=== PATIENT | male | born 1990 | race Caucasian/White ===

== ENCOUNTER 2017-09-29 21:32 | Emergency (ER) | payer OTHER, SELFPAY ==
--- NOTE | 2017-09-29 21:00 | CT_ITS ---
STUDY: CT ABDOMEN AND PELVIS WITHOUT CONTRAST REASON FOR EXAM: Male, 26 years old. Left flank pain RADIATION DOSAGE (If Supplied By Facility): CTDIvol = ( 24.18 ) mGy, DLP = ( 1341.05 ) mGycm TECHNIQUE: Transaxial images were obtained from the dome of the diaphragm to the symphysis pubis without oral contrast, and without intravenous contrast. Sagittal and coronal images were reconstructed. Individualized dose optimization techniques were used for this CT. COMPARISON: None. FINDINGS: Evaluation of the abdominal viscera is limited in the absence of intravenous contrast. There are minimal tree-in-bud opacities in the right middle lobe which are consistent with a very mild infectious etiology. The visualized portions of the heart and pericardium are within normal limits. There are no calcified gallstones present. The liver is low in density, consistent with fatty infiltration. The spleen is enlarged, measuring 15 cm in anterior posterior dimension. The pancreas demonstrates an unremarkable unenhanced appearance. The adrenal glands are within normal limits. There are no obstructing renal stones. There is no hydronephrosis. Normal visualized stomach. There is no bowel obstruction or inflammation. The appendix is not visualized, but there are no findings to suggest acute appendicitis. The aorta is normal in caliber. There is no abdominal or pelvic free air, free fluid, fluid collection or lymphadenopathy. There are no destructive osseous lesions. CT/Abdomen/Pelvis without Cont IMPRESSION: Minimal tree-in-bud opacities in the right middle lobe which are consistent with a very mild infectious or inflammatory etiology. No urinary calculi. No hydronephrosis. No bowel obstruction or inflammation. Normal appendix. Splenomegaly. Fatty liver. Electronically Signed: Kali Perez, at 21:45 EDT Tel , Service support ,
[2017-09-29 23:28] LABS: Bacteria 0 SEEN /hpf (None Seen); Mucous, Urine 0 SEEN /hpf (<or=2+); Red Blood Cells-Urine 0 SEEN /hpf (0-5); Squamous Epithelial Cells - UA 0 SEEN /hpf (0-5); White Blood Cells 0 SEEN /hpf (0-5)
[2017-09-30 00:03] LABS: Color, Urine Yellow (Yellow); Glucose, Dipstick Normal (Normal); Ketone-Dipstick Negative (Negative); Leukocyte Esterase-Dipstick Negative /ul (Negative); Nitrite-Dipstick Negative (Negative); Occult Blood-Urine Negative /ul (Negative); Protein-Dipstick Negative (Negative); Urine Bilirubin Dipstick Negative (Negative); Urine Clarity Clear (Clear); Urine Urobilinogen Normal (Normal)
--- NOTE | 2017-09-30 01:34 | ED.VISSUMM ---
- ER Visit Summary Date of Service: 09/30/17 Chief Complaint: Left flank pain History of Present Illness: The patient is a 26 M presents with waxing waning sharp left upper abdominal pain. States symptoms worse with movement. Denies any trauma. Pain currently 2. Denies any urinary symptoms. No history of kidney stones. States grandfather history of renal cancer. No medicines taken. Denies history of gastric ulcers or kidney injury. No past med history. Physical Examination: General: Alert and oriented ?3, no acute distress HEENT: Normocephalic, atraumatic. Moist mucosa membranes Neck: supple, nontender. Cardiovascular: Regular rate and rhythm, no murmurs Respiratory: Normal breath sounds, symmetric, no distress Abdomen: Soft, nontender, nondistended Back: No CVA tenderness, no rash Extremities: Nontender, no edema, pulses intact ?4 Neuro: no focal neurological deficits. Test Results: UA normal. Flank CT no intra-abdominal process. There is reported right middle tree but he concerns for infection versus inflammatory per radiology. Emergency Department Course and Treatment: Patient UA negative. Flank CT with no stones or intra-abdominal process. Given Motrin with improvement of symptoms. Also reported right middle lobe abutting per radiology with infection versus inflammation. Denies any cough symptoms. He does have tobacco history. He will continue Motrin as needed. He will follow-up as an outpatient. He will return if any worsening symptoms. Treatment Plan: [] Disposition: Discharge Impression: Nonspecific abdominal pain This note was generated with simplifyMD dictation software. It may contain incorrect words, spelling, and punctuation that were not noted in review of the chart prior to signing ED Disposition - Plan for ED Patient: Disposition: Home or Assisted Living Diagnosis: Nonspecific abdominal pain Referrals: [facility] Doctor,Out of [Primary Care Provider] -
== END 2017-09-29 22:55 | disposition home or self-care (01) ==
PROVIDERS: Emergency Provider Emergency Medicine
DX: R10.9 Unspecified abdominal pain (principal); M54.9 Dorsalgia, unspecified; E66.9 Obesity, unspecified
CPT/HCPCS: 74176; 81001; 99282

== ENCOUNTER → 2020-04-15 10:26 | Outpatient (CLI) | payer OTHER, SELFPAY ==
--- NOTE | 2020-04-15 10:34 | EKG12_ITS ---
Test Reason : PRE OP Blood Pressure : / mmHG Vent. Rate : 101 BPM Atrial Rate : 101 BPM P-R Int : 098 ms QRS Dur : 100 ms QT Int : 368 ms P-R-T Axes : 031 064 026 degrees QTc Int : 477 ms Sinus tachycardia Ventricular pre-excitation, WPW pattern type A Abnormal ECG Confirmed by SETH BENNETT, LINO ([id number]), photo editor EKTA ROSALES ([id number]) on 04/16/2020 12:53:54 PM Referred By: Haja Wilkins Confirmed By:HOMERO ANN MD
--- NOTE | 2020-04-15 10:49 | RAD_ITS ---
STUDY: X-RAY CHEST REASON FOR EXAM: Male, 29 years old. PRE-OP. NO CHEST COMPLAINTS TODAY. HX SMOKER TECHNIQUE: AP and lateral views of the chest. COMPARISON: Comparison is made with prior study dated 05/09/2016. FINDINGS: The lungs are clear and expanded. There is no demonstrated pleural abnormality. Normal size heart. Normal mediastinum and angel. Normal visualized pulmonary arteries. Normal visualized aortic arch and descending thoracic aorta. Normal visualized thoracic spine. Normal visualized ribs, clavicles, and shoulders. There is no demonstrated abnormality of the visualized soft tissue structures of the upper abdomen. RAD/Chest PA and Lateral IMPRESSION: Normal x-ray examination of the chest. Electronically Signed: Jeff Martinez, at 14:43 EST , Service support ,
[2020-04-15 11:57] LABS: Absolute Lymphocyte Count 2.43 X10^3/uL (0.83-4.51); Absolute Neutrophil Count 9.3 X10^3/uL (2.0-7.7); Basophil# 0.02 X10^3/uL; Basophil% 0.1 % (0-1); Eosinophil# 0.39 X10^3/uL; Eosinophils% 2.9 % (0-5); Hemoglobin 14.8 g/dL (13.0-16.5); Lymphocyte # 2.43 X10^3/ul (4.0); Lymphocyte % 18.2 % (19-41); Mean Corp Hgb Conc 31.5 g/dL (32-36); Mean Corpuscular Hgb 26.8 pg (27.0-32.0); Mean Corpuscular Volume 85.1 fL (80-94); Mean Platelet Vol. 9.7 fl (6.2-12.0); Monocyte# 1.22 X10^3/uL; Monocyte% 9.1 % (0-10); NRBC Flagged by Analyzer 0 % (0-5); Neutrophil # 9.28 X10^3/uL (2.7-7.7); Neutrophil % 69.4 % (47-70); Platelet Count 335 K/mm3 (150-450); RBC Distribution Width SD 40.2 fl (35.1-43.9); Red Blood Count 5.52 M/mm3 (4.6-6.2); White Blood Count 13.4 K/mm3 (4.4-11.0)
[2020-04-15 12:06] LABS: Partial Thromboplast Time 32.8 Seconds (24.1-36.2); Prothrombin Time (Protime)PT. 12.9 SECONDS (11.7-14.9)
[2020-04-15 12:23] LABS: Hemoglobin A1c 5.1 % (3.8-5.6)
[2020-04-15 12:46] LABS: Anion Gap 7 (5-15); BUN 14 mg/dL (7-18); BUN/Creat Ratio 13.7 RATIO (10-20); Calcium,Total 8.9 mg/dL (8.5-10.1); Chloride 103 mmol/L (98-107); Creatinine, Serum 1.02 mg/dL (0.70-1.30); EST Glomerular Filtration Rate 93 mL/min (>60); Est Glom Filt Rate - Afr Amer 112 mL/min (>60); Glucose 89 mg/dL (74-106); Potassium 3.8 mmol/L (3.5-5.1); Sodium Level 138 mmol/L (136-145)
== END ==
PROVIDERS: Referring Provider Podiatrist Foot & Ankle Surgery; Visit Provider Podiatrist Foot & Ankle Surgery
DX: Z01.810 Encounter for preprocedural cardiovascular examination (principal); Z01.812 Encounter for preprocedural laboratory examination; Z20.828 Contact with and (suspected) exposure to other viral communicable diseases
CPT/HCPCS: 36415; 71046; 80048; 83036; 85025; 85610; 85730; 87635; 93005; C9803; U0003

== ENCOUNTER → 2020-04-16 07:26 | Outpatient (CLI) | payer OTHER, SELFPAY ==
[2016-05-09 17:40] VITALS: BMI 44.9
--- NOTE | 2020-04-16 07:28 | CT_ITS ---
STUDY: CT LEFT ANKLE WITHOUT CONTRAST REASON FOR EXAM: Male, 29 years old. Left lower leg, displaced bimalleolar fracture, slipped and fell 1 week ago at work. RADIATION DOSAGE (If Supplied By Facility): CTDIvol = ( 15.35 ) mGy, DLP = ( 940.94 ) mGycm TECHNIQUE: Thin section transaxial imaging of the ankle was obtained, with sagittal and coronal reconstructed images. Individualized dose optimization techniques were used for this CT. COMPARISON: None. FINDINGS: Nondisplaced comminuted fracture through the midshaft of the fibula. There is a comminuted nondisplaced fracture along the posterior medial malleolus of the distal tibia. There is an avulsion fracture involving the lateral posterior aspect of the distal tibia. This is seen at the level of the distal tibial fibular joint. Normal tibiotalar articulation and talar dome. Normal talus, calcaneus, navicular and cuboid tarsal bones. Normal subtalar, talonavicular and calcaneocuboid articulations. Normal navicular-cuneiform, cuneiform tarsal bones and intercuneiform articulations. Normal tarsometatarsal articulations and visualized metatarsi. Soft tissue swelling. CT/Extremity Lower without Contra IMPRESSION: Condylar fracture of the distal fibular shaft. Nondisplaced fracture along the medial slightly posterior aspect of the distal tibia as well as an avulsion type fracture along the distal lateral inferior aspect of the lateral aspect of the tibia. Soft tissue swelling. Electronically Signed: Jeff Martinez, at 9:05 EST , Service support ,
== END ==
PROVIDERS: Referring Provider Podiatrist Foot & Ankle Surgery; Visit Provider Family Medicine
DX: S82.842A Displaced bimalleolar fracture of left lower leg, initial encounter for closed fracture (principal); S82.452A Displaced comminuted fracture of shaft of left fibula, initial encounter for closed fracture; S93.432A Sprain of tibiofibular ligament of left ankle, initial encounter
CPT/HCPCS: 73700

== ENCOUNTER 2024-09-22 17:32 | Emergency (ER) | payer SELFPAY ==
[2024-09-22 17:33] VITALS: BP 164/111; PULSE 104; RESP 20; TEMP 36.9; O2SAT 99; BMI 44.3
--- NOTE | 2024-09-22 17:52 | EKG12_ITS ---
Test Reason : CP Blood Pressure : */* mmHG Vent. Rate : 104 BPM Atrial Rate : 104 BPM P-R Int : 128 ms QRS Dur : 134 ms QT Int : 384 ms P-R-T Axes : 51 76 -18 degrees QTcB Int : 504 ms Sinus tachycardia Ventricular pre-excitation, WPW pattern type A Abnormal ECG Confirmed by Jose J Ryan ([id number]), online editor VENKAT DANG ([id number]) on 09/23/2024 1:16:02 PM Referred By: Confirmed By: Jose J Ryan
[2024-09-22] MEDS: Morphine 4 MG/ML Syringe IV (17:58)
[2024-09-22] MEDS: Ondansetron 4 MG/2 ML Vial IV (17:58)
--- NOTE | 2024-09-22 18:04 | ED.VIS.CHEST ---
HPI History of Present Illness Chief Complaint: Chest Pain Informant: patient and EMS Narrative Narrative: 33-year-old male presenting to the emergency room with chief complaint of hypertension and chest pain. Patient notes a history of WPW. He states that he does not take any medications. He does not typically check his blood pressure. Today he was at work when he developed a sharp pain on the right chest that eventually became more midsternal and went into the left arm with tingling. He states that he was not feeling well and had the nurses at the halfway check his blood pressure which was elevated. He denies any DVT PE risk factors. He denies any significant cough or fevers. He is a smoker. Father early of [place] in his 30s. No known familial history of aortic conditions. [facility] Medical History (Updated 09/22/24 @ 21:[address] Ricky Bazan DO) Nmpsh-Yzjpzeswh-Fzvkd (WPW) syndrome, type A Nicotine dependence Morbid obesity with BMI of 45.0-49.9, adult Closed left ankle fracture (04/10/20) Home Medications ?Medication ?Instructions ?Recorded ?Last Taken ?Type NK 09/22/24 Unknown History Allergy/AdvReac Type Severity Reaction Status Date / Time No Known Allergies Allergy Verified 09/22/24 17:38 Family History Father Heart disease Myocardial infarction, Onset Age: 32 age 32 [place] Mother Hypertension Grandmother CVA (cerebral vascular accident) Heart disease Diabetes Hypertension Grandfather Diabetes Heart disease Hypertension CAD (coronary artery disease) CABG age 62 Surgical History History of tonsillectomy Social History Smoking Status: Current every day smoker tobacco type: e-cigarettes Electronic Cigarette Use: with nicotine how long ago did patient quit smoking: less than 1 PPD alcohol intake: current alcohol intake frequency: holidays/special occasions only ROS ROS ED Constitutional Constitutional ED: Denies chills, fever(s) or weight loss Eyes Eyes: Denies change in vision or diplopia ENT ENT ED: Denies ear pain, rhinorrhea or sore throat Cardiovascular Cardiovascular: Reports chest pain; Denies orthopnea, palpitations or racing heartbeat Respiratory/Chest Respiratory/Chest: Reports dyspnea; Denies cough or orthopnea Gastrointestinal Gastrointestinal: Denies abdominal pain, diarrhea, nausea or vomiting Genitourinary Genitourinary ED: Denies dysuria, hematuria or urinary frequency Musculoskeletal Musculoskeletal: Denies arthralgias or myalgias Integumentary Denies abscess or rash Neurologic Neurologic: Reports paresthesias LUE; Denies headache(s) or weakness Psychiatric Psychiatric: Denies anxiety, depression, suicidal ideation or suicidal thoughts Endocrine Endocrinology: Denies polydipsia, polyphagia or polyuria Allergic/Immunologic Allergic/Immunologic ED: Denies mouth swelling, tongue swelling or urticaria EXAM Physical Exam Const Vital Signs: 09/22/24 17:33 09/22/24 17:36 09/22/24 18:32 Temperature 98.5 F Temperature Source Oral Pulse Rate 104 H 102 H Respiratory Rate 20 H 18 Respiratory Effort Normal Non-Labored Blood Pressure 164/111 H 162/113 H Blood Pressure Mean 128 129 Pulse Ox 99 97 Oxygen Delivery Method Room Air Room Air 09/22/24 19:00 09/22/24 19:59 09/22/24 21:00 Temperature 98.6 F Temperature Source Pulse Rate 91 85 95 Respiratory Rate 18 18 18 Respiratory Effort Blood Pressure 161/112 H 142/85 H 146/98 H Blood Pressure Mean 128 104 114 Pulse Ox 98 96 99 Oxygen Delivery Method Room Air Room Air Positive well nourished, well developed and obese General Appearance ED: well developed and NAD Nutritional Appearance: obese HEENT Reports normocephalic, head/scalp atraumatic and moist mucous membranes Eyes PERRL and EOMs intact bilaterally Neck no lymphadenopathy, supple and no JVD Resp normal respiratory effort and clear to auscultation bilaterally Cardio regular rate, regular rhythm and no murmurs Rate: tachycardic GI normal to inspection, nondistended, normoactive bowel sounds and non-tender Palpation: soft Back/Spine no CVA tenderness and normal ROM Extremity normal to inspection General Extremety ED: Negative for edema General Extremity: Negative for edema Neuro oriented x3 and CN's II-XII intact bilaterally Sensorium / Orientation: alert Motor Exam: strength 5/5 throughout Psych mental status grossly normal Mood & Affect: Negative for depressed or tearful Skin no rashes or lesions noted and no wounds MDM MDM MDM Narrative Medical decision making narrative: Differential diagnosis includes but not limited to hypertensive urgency acute coronary syndrome aortic dissection pulmonary embolism musculoskeletal chest pain pleurisy EKG is nonischemic with evidence of preexcitation. Given IV dye pattern. 2 sets of cardiac enzymes are 14. D-dimer is within normal limits. White count nonspecifically elevated 14 with no left shift. BMP within normal limits. My independent interpretation of the chest x-ray is no acute process. Without treatment his blood pressure is down to 146/98. He is going to monitor his blood pressure over the next week week and a half and if it continues to be elevated will need to establish primary care for evaluation of the hypertension. Due to his family history he may wish to follow-up with primary care to obtain outpatient stress testing. Patient is comfortable with this plan. History & Record Review Discussion w/independent historian: Patient Lab Data Attestation: I reviewed the patient's lab results. Labs: Laboratory Results - last 24 hr 09/22/24 09/22/24 09/22/24 17:46 18:07 19:54 WBC 14.2 H RBC 5.68 Hgb 15.7 Hct 45.9 MCV 80.8 MCH 27.6 MCHC 34.2 RDW Std Deviation 39.1 RDW Coeff of Andreas 13.3 Plt Count 282 MPV 10.6 Immature Gran % (Auto) 0.100 Neut % (Auto) 54.2 Lymph % (Auto) 34.5 [place] % (Auto) 9.7 Eos % (Auto) 1.2 Baso % (Auto) 0.3 Absolute Neuts (auto) 7.7 Absolute Lymphs (auto) 4.89 H Nucleated RBC % 0 D-Dimer Quant (PE/DVT) 0.27 Sodium 138 Potassium 3.6 Chloride 100 Carbon Dioxide 23.9 Anion Gap 14 BUN 8 Creatinine 1.13 Estim Creat Clear Calc 158.30 Est GFR (MDRD) Non-Af 89 BUN/Creatinine Ratio 7.4 L Glucose 95 Calcium 9.4 Troponin T High Sens 14 Troponin T Hi Sens 2 Hr 14 Radiography Diagnostic Testing: Clinical Impression(s) from Imaging Studies Chest X-Ray 09/22/24 18:12 IMPRESSION: No acute airspace abnormality. Reading Location: [facility] Discharge Plan Triage Chief Complaint: Chest Pain ED Provider: Dickens,Ricky Dx/Rx/DC Orders Clinical Impression: Chest pain, Hypertension Instructions: ED Chest Pain, Uncertain Cause, ED Hypertension, To Be Confirmed Prescriptions: No Action NK Primary Care Provider: Care Physician,No Primary Referrals: Mykel Oliver MD [Med Staff - Active Staff] - 1-2 Weeks (for primary care evaluation of blood pressure and chest pain) Care Physician,No Primary [Primary Care Provider] - Print Language: Welsh Disposition Disposition: Home, Self Care Discharge Date/Time: 09/22/24 21:07
[2024-09-22 18:10] LABS: Absolute Lymphocyte Count 4.89 X10^3/uL (0.83-4.51); Absolute Neutrophil Count 7.7 X10^3/uL (2.0-7.7); Basophil# 0.04 X10^3/uL; Basophil% 0.3 % (0-1); Eosinophil# 0.17 X10^3/uL; Eosinophils% 1.2 % (0-5); Hematocrit 45.9 % (40-54); Hemoglobin 15.7 g/dL (13.0-16.5); Lymphocyte # 4.89 X10^3/ul (0.83-4.51); Lymphocyte % 34.5 % (19-41); Mean Corp Hgb Conc 34.2 g/dL (32-36); Mean Corpuscular Hgb 27.6 pg (27.0-32.0); Mean Corpuscular Volume 80.8 fL (80-94); Mean Platelet Vol. 10.6 fl (6.2-12.0); Monocyte# 1.37 X10^3/uL; Monocyte% 9.7 % (0-10); NRBC Flagged by Analyzer 0 % (0-5); Neutrophil # 7.69 X10^3/uL (2.7-7.7); Neutrophil % 54.2 % (47-70); Platelet Count 282 K/mm3 (150-450); RBC Distribution Width CV 13.3 % (11.6-14.6); RBC Distribution Width SD 39.1 fl (35.1-43.9); Red Blood Count 5.68 M/mm3 (4.6-6.2); White Blood Count 14.2 K/mm3 (4.4-11.0)
--- NOTE | 2024-09-22 18:12 | RAD_ITS ---
PROCEDURE: CHEST 1 VIEW (PORTABLE) 09/22/2024 REASON FOR EXAM: CHEST PAIN TECHNIQUE: Frontal view of the chest. COMPARISON: None FINDINGS: Cardiomediastinal silhouette is within normal limits. Lungs are clear. No sizable pneumothorax. RAD/Chest 1 View (Portable) IMPRESSION: No acute airspace abnormality. Reading Location: [facility]
[2024-09-22 18:28] LABS: Anion Gap 14 (5-15); BUN 8 mg/dL (4-19); BUN/Creat Ratio 7.4 RATIO (10-20); Calcium,Total 9.4 mg/dL (7.6-11.0); Carbon Dioxide 23.9 mmol/L (21.0-32.0); Chloride 100 mmol/L (98-108); Creatinine, Serum 1.13 mg/dL (0.70-1.20); EST Glomerular Filtration Rate 89 (>60); Glucose 95 mg/dL (70-99); Potassium 3.6 mmol/L (3.3-5.1); Sodium Level 138 mmol/L (133-145); Troponin T High Sensitivity 14 ng/L (<=22)
[2024-09-22 18:32] VITALS: BP 162/113; PULSE 102; RESP 18; O2SAT 97
[2024-09-22 18:36] LABS: D-Dimer Quantitative (DVT/PE) 0.27 FEU/ug/m (0.27-0.49)
[2024-09-22 19:00] VITALS: BP 161/112; PULSE 91; RESP 18; O2SAT 98
[2024-09-22 19:59] VITALS: BP 142/85; PULSE 85; RESP 18; O2SAT 96
[2024-09-22 20:16] LABS: Troponin T High Sens 2 HR 14 ng/L (<=22)
[2024-09-22 21:00] VITALS: BP 146/98; PULSE 95; RESP 18; TEMP 37; O2SAT 99
== END 2024-09-22 21:07 | disposition home or self-care (01) ==
PROVIDERS: Emergency Provider Emergency Medicine; Visit Provider Emergency Medicine
DX: R07.9 Chest pain, unspecified (principal); E66.01 Morbid (severe) obesity due to excess calories; Z68.41 Body mass index [BMI] 40.0-44.9, adult; I10 Essential (primary) hypertension; F17.290 Nicotine dependence, other tobacco product, uncomplicated; Z82.49 Family history of ischemic heart disease and other diseases of the circulatory system
CPT/HCPCS: 71045; 80048; 84484; 85025; 85379; 93005; 96374; 96375; 99285; A4216; J2405